=== PATIENT | male | born 1965 | race African-American/Black ===

== ENCOUNTER → 2020-06-07 | Outpatient (CLI) | payer BC ==
--- NOTE | 2020-06-07 08:15 | RAD ---
Right upper quadrant abdominal ultrasound INDICATION: Right upper quadrant abdominal pain TECHNIQUE: Grayscale and color Doppler imaging of the right upper quadrant abdomen was performed FINDINGS: Echogenic liver compatible with fatty infiltration, moderately severe. No liver masses or nodular contour is identified. The gallbladder contains debris compatible with sludge. No wall thickening or pericholecystic fluid is identified and no sonographic Munoz's sign is reported. No intra or extrahepatic biliary dilation. Right kidney measures 9.7 x 5.7 x 5.7 cm and is unremarkable. IVC and abdominal aorta are poorly visualized. IMPRESSION: Fatty liver and gallbladder sludge. No evidence of cholecystitis by ultrasound. Electronically signed by: Willa Mata MD (06/07/2020 8:12 AM) [id number]
== END ==
LOC: US 07:11
PROVIDERS: ATTEND Family Medicine
DX: K76.0 Fatty (change of) liver, not elsewhere classified (principal)
CPT/HCPCS: 76705

== ENCOUNTER → 2020-06-22 | Outpatient (CLI) | payer BC ==
[~2020-06-22] VITALS: Ht 182.9 cm; Wt 95.3 kg
[~2020-06-22] MED LIST: SINCALIDE 1.91 MCG in IV NORMAL SALINE 50ML 30 ML IV ONE
--- NOTE | 2020-06-22 11:05 | RAD ---
HEPATOBILIARY SCAN WITH EJECTION FRACTION 06/22/2020 11:01 AM History: Reason: / Spl. Instructions: / History: Procedure: Serial static images are obtained of the liver and biliary system in the frontal projection following IV administration of mCi of Technetium 99m Choletec. After filling of the gallbladder, 1.9 mcg of sincalide were infused over 30 minutes and dynamic imaging continued over this period. The gallbladder ejection fraction was calculated. Findings: There is prompt hepatic clearance of tracer from the blood pool. There is homogeneous distribution throughout the liver. The gallbladder ejection fraction measures 17% (normal gallbladder EF is 35% or greater). IMPRESSION: 1. The cystic duct and common bile duct are patent. Negative for acute cholecystitis. 2. The gallbladder ejection fraction is abnormal measuring 17 %. Findings may indicate chronic cholecystitis or gallbladder dyskinesia. Electronically signed by: Germain Fuller MD (06/22/2020 11:02 AM) [id number]
== END ==
LOC: NM 08:22
PROVIDERS: ATTEND Family Medicine
DX: R10.11 Right upper quadrant pain (principal)
CPT/HCPCS: 78227; A9537; J2805

== ENCOUNTER → 2020-07-25 | Outpatient (CLI) | payer BC ==
[~2020-07-25] MED LIST changes: +ASPI-630 PO; +HYDR12.575 PO; +LISI-334 PO; +METF500T16 PO; +OXYC1TAB15 PO; -SINCALIDE 1.91 MCG in IV NORMAL SALINE 50ML 30 ML IV ONE
== END ==
LOC: LAB 09:25
PROVIDERS: ATTEND Surgery
DX: Z01.812 Encounter for preprocedural laboratory examination (principal); Z20.828 Contact with and (suspected) exposure to other viral communicable diseases
CPT/HCPCS: U0003

== ENCOUNTER 2020-07-28 06:06 | Day surgery (SDC) | payer BC ==
[~2020-07-28] VITALS: Ht 177.8 cm; Wt 93.5 kg
[2020-07-28] MEDS ORDERED: ONDANSETRON PF 4 MG/2 ML VIAL. ONE (06:37)
[2020-07-28] MEDS ORDERED: LIDOCAINE 2% PF 5 ML VIAL. ONE (06:37)
[2020-07-28] MEDS ORDERED: ROCURONIUM 50 MG/5 ML VIAL. ONE (06:37)
[2020-07-28] MEDS ORDERED: DEXAMETHASONE SOD PHOS 4 MG/ML VIAL ONE (06:37)
[2020-07-28] MEDS ORDERED: PROPOFOL 10 MG/ML (20ML) VIAL. IV ONE ×2 (06:37)
[2020-07-28] MEDS ORDERED: LISI-334 PO (06:39)
[2020-07-28] MEDS ORDERED: HYDR12.575 PO (06:39)
[2020-07-28] MEDS ORDERED: METF500T16 PO (06:40)
[2020-07-28] MEDS ORDERED: ASPI-630 PO (06:41)
[2020-07-28] MEDS ORDERED: fentaNYL PF VIAL 100 MCG/2 ML VIAL IV PRN (07:00)
[2020-07-28] MEDS ORDERED: LIDOCAINE 1% PF 2 ML VIAL. ID PRN (07:00)
[2020-07-28] MEDS ORDERED: HYDROmorphone 2 MG/ML VIAL IV PRN (07:00)
[2020-07-28] MEDS ORDERED: ONDANSETRON PF 4 MG/2 ML VIAL. IV PRN (07:00)
[2020-07-28] MEDS ORDERED: IV RINGERS,LACTATED 1000ML 1,000 ML IV SCH (07:00)
[2020-07-28] MEDS ORDERED: INSULIN LISPRO 100 UNIT/ML 3ML VIAL for OP,RR ONLY. SQ PRN (07:15)
[2020-07-28] MEDS ORDERED: IOHEXOL 300 MG/ML 50 ML VIAL. ONE (07:20)
[2020-07-28] MEDS ORDERED: SURGICEL HEMOSTAT 4X8 EACH. ONE (07:20)
[2020-07-28] MEDS ORDERED: ACETAMINOPHEN 500 MG TABLET PO ONE ×2 (07:25→07:30)
[2020-07-28] MEDS ORDERED: INSULIN LISPRO 100 UNIT/ML 3ML VIAL for OP,RR ONLY. SQ ONE (07:25)
[2020-07-28] MEDS ORDERED: NEOSTIGMINE METHYLSULFATE 5 MG/5 ML SYRINGE. ONE (07:25)
[2020-07-28] MEDS ORDERED: MIDAZOLAM HCL/PF 2 MG/2 ML VIAL. ONE ×2 (07:25→08:57)
[2020-07-28] MEDS ORDERED: fentaNYL PF VIAL 100 MCG/2 ML VIAL ONE ×3 (07:25→08:45)
[2020-07-28] MEDS ORDERED: GLYCOPYRROLATE 1 MG/5 ML VIAL. ONE (07:26)
[2020-07-28] MEDS ORDERED: BUPIVACAINE-EPI 0.25%-1:200000 MPF 30 ML VIAL. INJ ONE (08:00)
--- NOTE | 2020-07-28 08:13 | PDOC4 ---
Operative Note Operative Note Date: July 28, 2020 at 08 11 Preoperative diagnosis biliary dyskinesia Postoperative diagnosis: Same Procedure: Laparoscopic cholecystectomy Surgeon: Jam Specimen: Gallbladder Dictation: Patient is a 55-year-old male with right upper quadrant abdominal pain is postprandial nausea biliary scan showed a ejection fraction of only 17%. Procedure of laparoscopic cholecystectomy was explained to the patient detail risk benefits were also discussed including bleeding infection injury to intra- abdominal contents possible necessitating further open operations alternatives to this procedure also discussed with the patient who seemed to understand and gave both verbal and written consent to have the procedure performed. Patient was taken to the operating room placed in supine position general anesthesia was initiated once patient was sleeping intubated his abdomen was prepped and draped usual sterile fashion using ChloraPrep. Area just below the umbilicus was injected with quarter percent Marcaine with epinephrine incision was made 11 blade scalpel and a varies needle was placed within the abdomen creating pneumoperitoneum once this complete 11 m port was placed and a 5 mm camera was placed within the abdomen which was inspected no other red maladies were noted. A 5 mm port was placed in the epigastrium a 5 mm port was placed in the right midabdomen and a 5 mm port was placed in the right lateral abdomen. The dome of the gallbladder is grasped retracted cephalad the infundibulum of the gallbladder is grasped tract and laterally adherent tissues to the gallbladder were taken down with blunt dissection down to the triangle exposing the cystic duct and cystic artery both were doubly clipped and transected the gallbladder was taken off the liver with hook electrocautery placed in Endo Catch bag and removed from the umbilicus the right upper quadrant was irrigated and suctioned dry hemostasis deemed be appropriate the pneumoperitoneum was reduced all ports were removed the fascial defect at the umbilicus closed with [id number] 0 Vicryl suture and the skin was reapproximated all port sites for subcuticular Monocryl Mastisol Steri-Strips and island dressings were applied. Patient was awakened and extubated operating room taken to recovery in stable condition all sponge instrument needle counts listed as correct estimated blood loss 10 mL JUSTINA RIDER MD Jul 28, 2020 08:13
--- NOTE | 2020-07-28 08:15 | DISCH ---
DISCHARGE INSTRUCTIONS Condition on Discharge Condition on Discharge: Stable Activity After Discharge Activity Instructions for Disc: Avoid exertion Other activity instructions: No lifting more than 20 pounds for 2 weeks Diet after Discharge Diet after Discharge: Low Fat Wound Incision Care Other wound/incision instructi: May shower in 24 hours Contacting the after DC Call your doctor for: If your condition worsens Follow-Up Follow up with: Dr. Rider in 2 weeks JUSTINA RIDER MD Jul 28, 2020 08:15
[2020-07-28] MEDS ORDERED: OXYC1TAB15 PO (08:31)
[2020-07-28] MEDS ORDERED: RACEPINEPHRINE 2.25% 0.5 ML NEBU. ONE (08:43)
[2020-07-28] MEDS ORDERED: MORPHINE SULFATE 2 MG/ML VIAL. ONE (08:45)
[2020-07-28] MEDS ORDERED: ALBUTEROL SULFATE 2.5 MG/3 ML NEBU. NEB ONE (09:00)
[2020-07-28] MEDS ORDERED: MIDAZOLAM HCL/PF 2 MG/2 ML VIAL. IV ONE (09:00)
[2020-07-28] MEDS ORDERED: RACEPINEPHRINE 2.25% 0.5 ML NEBU. NEB ONE (09:00)
[2020-07-28] MEDS: fentaNYL PF VIAL 100 MCG/2 ML VIAL IV PRN ×2 (09:08→09:19)
[2020-07-28] MEDS: MORPHINE SULFATE 2 MG/ML VIAL. IV PRN ×2 (09:09→09:19)
[2020-07-28] MEDS ORDERED: oxyCODONE/APAP 5/325 1 TAB TABLET PO ONE (09:15)
[2020-07-28] MEDS ORDERED: oxyCODONE/APAP 5/325 1 TAB TABLET PO PRN (09:15)
[2020-07-28] MEDS: PROCHLORPERAZINE 10 MG/2 ML VIAL. IV PRN ×2 (09:19→09:34)
[2020-07-28] MEDS ORDERED: HYDROmorphone 2 MG/ML VIAL ONE (09:32)
[2020-07-28 09:52] VITALS: BP 146/85
--- NOTE | 2020-08-01 00:06 | PATHOLOGY ---
[facility] Accession Number: [id number] . 01 Material submitted: . gallbladder - GALLBLADDER AND CONTENTS . 01 Clinical history: . CHOLELITHIASIS . 02 Diagnosis: "Gallbladder and contents", cholecystectomy: - Chronic cholecystitis. (CLW:letha; 07/31/2020) MBR 07/31/2020 1649 Local . 02 Electronically signed: . Mariana Holliday MD, Pathologist NPI- [id number] . 01 Gross description: . Received in formalin labeled "Darrin Talamantes, gallbladder and contents" is an intact cholecystectomy specimen measuring 6.7 x 2.8 x 2.7 cm. The serosa is arboleda-green and the specimen is opened to reveal dark green velvety mucosa without polyps or masses. The average wall thickness is 0.1 cm. Calculi are not identified within the gallbladder or container. Quality Inspector sections of the fundus and body and the cystic duct margin are submitted in A1. ([facility]; 07/30/2020) [facility] 07/30/2020 1059 Local . 02 Pathologist provided ICD-10: K81.1 . 02 CPT . 829987 Specimen Comment: A courtesy copy of this report has been sent to [phone] Specimen Comment: Report sent to / DR HUGHES Performed at: 01 [facility] [address] [facility] [address] [facility] [address], [place] [id number] MD Rocco Lafleur MD Phone: [phone] Performed at: 02 [facility] [address] [place], [place] [id number] MD Anurag Mike MD Phone: [phone]
== END 2020-07-28 10:18 | disposition home or self-care (01) ==
LOC: SURG 06:06
PROVIDERS: ATTEND Surgery
DX: K82.8 Other specified diseases of gallbladder (principal); K81.1 Chronic cholecystitis; I10 Essential (primary) hypertension; E11.40 Type 2 diabetes mellitus with diabetic neuropathy, unspecified; J44.9 Chronic obstructive pulmonary disease, unspecified; M19.90 Unspecified osteoarthritis, unspecified site; K21.9 Gastro-esophageal reflux disease without esophagitis; E78.00 Pure hypercholesterolemia, unspecified; Z98.890 Other specified postprocedural states; Z87.891 Personal history of nicotine dependence; Z90.49 Acquired absence of other specified parts of digestive tract; Z79.899 Other long term (current) drug therapy; Z79.82 Long term (current) use of aspirin; Z79.84 Long term (current) use of oral hypoglycemic drugs; Z96.641 Presence of right artificial hip joint
CPT/HCPCS: 47562; 82962; 94640; J0690; J1100; J1170; J1815; J2250; J2270; J2405; J2704; J2710; J3010; J3490; J7120; Q9967

== ENCOUNTER 2020-07-28 13:33 | Emergency (ER) | payer BC ==
[~2020-07-28] VITALS: Ht 182.9 cm; Wt 95.0 kg
[2020-07-28] MEDS ORDERED: IV NORMAL SALINE 1000ML BAG 1,000 ML IV ONE (14:00)
[2020-07-28 14:54] LABS: BASO # 0.1 x10^3/uL (0.0-0.2); BASO % 1 % (0-3); CALCIUM 8.8 mg/dL (8.5-10.1); CREATININE 1.1 mg/dL (0.7-1.3); EOS % 0 % (0-3); GFR 84.1; HEMOGLOBIN 12.5 g/dL (13.0-17.5); LYMPH # 0.9 x10^3/uL (1.0-4.8); LYMPH % 6 % (24-48); MEAN CORPUSCULAR HEMOGLOBIN 35 pg (25-35); MEAN CORPUSCULAR HGB CONC 34 g/dL (31-37); MEAN CORPUSCULAR VOLUME 103 fL (79-100); MONO # 0.6 x10^3/uL (0.0-1.1); MONO % 4 % (0-9); NEUT # 15.1 x10^3/uL (1.8-7.7); NEUT % 90 % (31-73); PLATELET COUNT 230 x10^3/uL (140-400); POTASSIUM 3.8 mmol/L (3.5-5.1); RED BLOOD COUNT 3.61 x10^6/uL (4.30-5.70); RED CELL DISTRIBUTION WIDTH 12.5 % (11.5-14.5); WHITE BLOOD COUNT 16.7 x10^3/uL (4.0-11.0)
[2020-07-28 15:00] LABS: ALBUMIN 3.1 g/dL (3.4-5.0); ALBUMIN/GLOBULIN RATIO 0.9 (1.0-1.7); TOTAL BILIRUBIN 0.2 mg/dL (0.2-1.0); TOTAL PROTEIN 6.4 g/dL (6.4-8.2)
--- NOTE | 2020-07-28 15:23 | RAD ---
EXAM: Chest, single view. HISTORY: Shortness of breath. COMPARISON: None. FINDINGS: A frontal view of the chest is obtained. There is no infiltrate, pleural effusion or pneumo thorax. There is a prominent cardiac silhouette. IMPRESSION: No acute pulmonary finding. Electronically signed by: Jamia Vázquez MD (07/28/2020 3:20 PM) [facility]
[2020-07-28 16:18] LABS: % LYMPHS 8 % (24-48); % MONOS 3 % (0-10); % SEGS 89 % (35-66); PLT ESTIMATE ADEQUATE (ADEQUATE)
[2020-07-28 16:19] LABS: SCHISTOCYTES OCC; TOXIC GRANULATION SLIGHT; TOXIC VACUOLATION SLIGHT
[2020-07-28] MEDS ORDERED: IOHEXOL 350 MG/ML 100 ML VIAL. IV ONE (16:45)
[2020-07-28] MEDS ORDERED: CONTRAST GIVEN. MC PRN (17:00)
[2020-07-28] MEDS ORDERED: MORPHINE SULFATE 4 MG/ML VIAL. IV ONE (17:15)
--- NOTE | 2020-07-28 18:09 | PHYS DOC ---
Past Medical History Past Medical History: Diabetes-Type II, High Cholesterol, Hypertension, Other Additional Past Medical Histor: NEUROPATHY (SHIRLEY SANTOYO DO) Past Surgical History: Cholecystectomy, Hip Replacement, Other (SHIRLEY SANTOYO DO) Smoking Status: Former Smoker Alcohol Use: None (SHIRLEY SANTOYO DO) General Adult EDM: Chief Complaint: NEAR SYNCOPE HPI: HPI: Patient is a 55 year old male who was brought here by EMS from home due to trouble breathing. Patient feels like he was going to pass out due to trouble breathing. Patient just got home from the hospital after he had a laparoscopic cholecystectomy done this morning. Patient denies any chest pain, denies any cough or fever. Patient is complain of pain in his right upper quadrant area where the operation was done (SHIRLEY SANTOYO DO) Review of Systems: Review of Systems: Constitutional: Denies fever or chills. [] Eyes: Denies change in visual acuity. [] HENT: Denies nasal congestion or sore throat. [] Respiratory: Denies cough , positive for shortness of breath. [] Cardiovascular: Denies chest pain or edema. [] GI: Denies abdominal pain, nausea, vomiting, bloody stools or diarrhea. [] : Denies dysuria. [] Musculoskeletal: Denies back pain or joint pain. [] Integument: Denies rash. [] Neurologic: Denies headache, focal weakness or sensory changes. [] Endocrine: Denies polyuria or polydipsia. [] Lymphatic: Denies swollen glands. [] Psychiatric: Denies depression or anxiety. [] (SHIRLEY SANTOYO DO) Heart Score: Risk Factors: Risk Factors: DM, Current or recent (<one month) smoker, HTN, HLP, family history of CAD, obesity. Risk Scores: Score 0 - 3: 2.5% MACE over next 6 weeks - Discharge Home Score 4 - 6: 20.3% MACE over next 6 weeks - Admit for Clinical Observation Score 7 - 10: 72.7% MACE over next 6 weeks - Early Invasive Strategies (SHIRLEY SANTOYO DO) Current Medications: Current Medications Medications (Trade) Dose Ordered Sig/Shilo Start Time Stop Time Status Last Admin Dose Admin Info (CONTRAST GIVEN -- Rx MONITORING) 1 each PRN DAILY PRN 07/28/20 17:00 07/30/20 16:59 Iohexol (Omnipaque 350 Mg/ml) 100 ml 1X ONCE 07/28/20 16:45 07/28/20 16:46 DC 07/28/20 17:15 100 ML Morphine Sulfate (Morphine Sulfate) 4 mg 1X ONCE 07/28/20 17:15 07/28/20 17:16 DC 07/28/20 17:16 4 MG Sodium Chloride 1,000 ml @ 1,000 mls/hr 1X ONCE 07/28/20 14:00 07/28/20 14:59 DC 07/28/20 14:00 1,000 MLS/HR (SHIRLEY SANTOYO DO) Allergies: Allergies: Allergies Coded Allergies Type Severity Reaction Last Updated Verified No Known Drug Allergies 07/28/20 No (SHIRLEY SANTOYO DO) Physical Exam: PE: Constitutional: Well developed, well nourished, no acute distress, non-toxic appearance. [] HENT: Normocephalic, atraumatic, bilateral external ears normal, oropharynx moist, no oral exudates, nose normal. [] Eyes: PERRLA, EOMI, conjunctiva normal, no discharge. [] Neck: Normal range of motion, no tenderness, supple, no stridor. [] Cardiovascular:Heart rate regular rhythm, no murmur [] Lungs & Thorax: Bilateral breath sounds clear to auscultation [] Abdomen: Bowel sounds normal, soft, ruq tenderness to palpation, mild distension, no masses, no pulsatile masses. [] Skin: Warm, dry, no erythema, no rash. [] Back: No tenderness, no CVA tenderness. [] Extremities: No tenderness, no cyanosis, no clubbing, ROM intact, no edema. [] Neurologic: Alert and oriented X 3, normal motor function, normal sensory fu nction, no focal deficits noted. [] Psychologic: Affect normal, judgement normal, mood normal. [] (SHIRLEY SANTOYO DO) Current Patient Data: Labs: Laboratory Tests Test 07/28/20 14:37 White Blood Count 16.7 x10^3/uL (4.0-11.0) H Red Blood Count 3.61 x10^6/uL (4.30-5.70) L Hemoglobin 12.5 g/dL (13.0-17.5) L Hematocrit 37.0 % (39.0-53.0) L Mean Corpuscular Volume 103 fL (79-100) H Mean Corpuscular Hemoglobin 35 pg (25-35) Mean Corpuscular Hemoglobin Concent 34 g/dL (31-37) Red Cell Distribution Width 12.5 % (11.5-14.5) Platelet Count 230 x10^3/uL (140-400) Neutrophils (%) (Auto) 90 % (31-73) H Lymphocytes (%) (Auto) 6 % (24-48) L Monocytes (%) (Auto) 4 % (0-9) Eosinophils (%) (Auto) 0 % (0-3) Basophils (%) (Auto) 1 % (0-3) Neutrophils # (Auto) 15.1 x10^3/uL (1.8-7.7) H Lymphocytes # (Auto) 0.9 x10^3/uL (1.0-4.8) L Monocytes # (Auto) 0.6 x10^3/uL (0.0-1.1) Eosinophils # (Auto) 0.0 x10^3/uL (0.0-0.7) Basophils # (Auto) 0.1 x10^3/uL (0.0-0.2) Segmented Neutrophils % 89 % (35-66) H Lymphocytes % 8 % (24-48) L Monocytes % 3 % (0-10) Toxic Granulation Slight Toxic Vacuolation Slight Platelet Estimate Adequate (ADEQUATE) Schistocytes Occ Sodium Level 139 mmol/L (136-145) Potassium Level 3.8 mmol/L (3.5-5.1) Chloride Level 103 mmol/L (98-107) Carbon Dioxide Level 23 mmol/L (21-32) Anion Gap 13 (6-14) Blood Urea Nitrogen 17 mg/dL (8-26) Creatinine 1.1 mg/dL (0.7-1.3) Estimated GFR (Cockcroft-Gault) 84.1 BUN/Creatinine Ratio 15 (6-20) Glucose Level 220 mg/dL (70-99) H Calcium Level 8.8 mg/dL (8.5-10.1) Total Bilirubin 0.2 mg/dL (0.2-1.0) Aspartate Amino Transferase (AST) 49 U/L (15-37) H Alanine Aminotransferase (ALT) 69 U/L (16-63) H Alkaline Phosphatase 63 U/L (46-116) Total Protein 6.4 g/dL (6.4-8.2) Albumin 3.1 g/dL (3.4-5.0) L Albumin/Globulin Ratio 0.9 (1.0-1.7) L Laboratory Tests 07/28/20 14:37 Laboratory Tests 07/28/20 14:37 Vital Signs: Vital Signs Date Time Temp Pulse Resp B/P (MAP) Pulse Ox O2 Delivery O2 Flow Rate FiO2 07/28/20 13:35 97.5 91 22 126/71 (89) 100 Room Air 97.5 (SHIRLEY SANTOYO DO) EKG: EKG: [] (SHIRLEY SANTOYO DO) Radiology/Procedures: Radiology/Procedures: [][facility] [address] [place] [address] IMAGING REPORT Signed PATIENT: MATTHIAS NIX QACCOUNT: [id number] : 1965 LOCATION: ER AGE: 55 SEX: M EXAM STATUS: REG ER ORD. PHYSICIAN: SHIRLEY SANTOYO DO REASON: shortness of air, chest pain, cholecystectomy done today PROCEDURE: CHEST AP ONLY EXAM: Chest, single view. HISTORY: Shortness of breath. COMPARISON: None. FINDINGS: A frontal view of the chest is obtained. There is no infiltrate, pleural effusion or pneumothorax. There is a prominent cardiac silhouette. IMPRESSION: No acute pulmonary finding. Electronically signed by: Jamia Galeana MD (07/28/2020 3:20 PM) [facility] DICTATED and SIGNED BY: JAMIA GALEANA MD DATE: 07/28/20 [id number] (SHIRLEY SANTOYO DO) Course & Med Decision Making: Course & Med Decision Making Pertinent Labs and Imaging studies reviewed. (See chart for details) CT scan of the chest show no evidence of PE, other finding is expected after laparoscopic cholecystectomy this morning. Patient will be discharged home. (SHIRLEY SANTOYO DO) Course & Med Decision Making I was not the ED provider for this patient. ([facility]) Dragon Disclaimer: Dragon Disclaimer: This electronic medical record was generated, in whole or in part, using a voice recognition dictation system. (SHIRLEY SANTOYO DO) Departure Departure Impression: Primary Impression: Acute dyspnea Disposition: 01 DC HOME SELF CARE/HOMELESS Condition: IMPROVED Referrals: Anali HUGHES MD (PCP) JUSTINA RIDER MD Follow-up with your surgeon as directed. Patient Instructions: Pain Relief Preoperatively and Postoperatively, Shortness of Breath Additional Instructions: Thank you for visiting our Emergency Department. We appreciate you trusting us with your care. If any additional problems come up don't hesitate to return to visit us. Please follow up with your primary care provider so they can plan additional care if needed and know about the problem that you had. If symptoms worsen come back to the Emergency Department. Any concerning symptoms that start such as chest pain, shortness of air, weakness or numbness on one side of the body, running high fevers or any other concerning symptoms return to the ER. SHIRLEY SANTOYO DO Jul 28, 2020 18:09 JACQUELIN POND DO Jul 30, 2020 03:42
--- NOTE | 2020-07-28 18:23 | RAD ---
Study: CT CHEST WITH CONTRAST - PULMONARY ANGIOGRAM History: Chest pain. Status post cholecystectomy. Comparison: None. Technique: Helical CT of the chest performed after the administration of 100 cc Omnipaque 350 intrav enous contrast and timed for angiographic evaluation of the pulmonary arteries per PE protocol. Coron al and sagittal 3D MIP reformations were obtained. One or more of the following individualized dose reduction techniques were utilized for this examinat ion: 1. Automated exposure control 2. Adjustment of the mA and/or kV according to patient size 3. Use of iterative reconstruction technique. Findings: Pulmonary Arteries: No pulmonary embolism is identified. Normal main pulmonary artery caliber. Heart/Systemic Vasculature: Scattered calcified and noncalcified atheromatous plaque. No aortic aneur ysmal dilatation or dissection. The visualized great vessels are patent. No CT manifestations of righ t heart strain. Mediastinum: Within normal limits. Lungs: Paraseptal emphysema. No suspicious pulmonary nodule based on size. No confluent airspace infi ltrate. No pleural effusion or pneumothorax. Neck/Axilla/Body Wall: Nodule at the far inferior aspect of the left thyroid lobe measuring up to 1.3 cm. No associated mineralization is identified. The nodule does not meet size criteria for dedicated thyroid ultrasound (given size less than 1.5 cm) unless otherwise clinically indicated. Axillary lym ph nodes are within normal limits. Mild gynecomastia. Upper Abdomen: Small volume pneumoperitoneum in the setting of recent cholecystectomy. Hemorrhage see n adjacent to the left hepatic lobe as well as abutting the distal stomach and proximal duodenum and extending along the greater curvature up to the left subdiaphragmatic region. Blood products along th e periphery of the spleen and extending downward below the inferior field of view. No contrast blush from the hepatic arteries is seen in the region of hemorrhage. Diffuse hepatic parenchymal hypoattenu ation. Small left adrenal gland nodule, image 136 series 3, measuring approximately 1.1 cm. The rest of the left adrenal gland is somewhat hyperplastic without an additional discrete nodule. The nodule is indeterminant based off internal density averaging around 40 Hounsfield units. Prominent precaval lymph node on image 139 series 3 measuring 1.7 cm short axis. Lymph node anterior to the main portal vein on image 136 series 3 measures 1.2 cm short axis. Bones: No acute or aggressive osseous process. Miscellaneous: Partially imaged sequela of surgery involving the body wall soft tissues with scattere d foci of gas. IMPRESSION: 1. No pulmonary embolism or other acute abnormality throughout the chest. 2. Blood products seen predominantly along the left hepatic lobe, stomach and spleen. Hemorrhage aragon s exert some mass effect on the distal stomach (image 146 series 3). No contrast blush is identified from adjacent hepatic artery branches to suggest active hemorrhage. This could be within normal limit s given recent surgery but it would be useful to correspond with the performing surgical team to dete rmine if the volume of hemorrhage is on par with what was encountered during surgery. If the volume o f blood is more than expected, recommend CBC trending and a follow-up could be performed to assess fo r any change. 3. Small volume pneumoperitoneum favored within normal limits. 4. Small left adrenal gland nodule measuring 1.1 cm. Correlate with any potential outside CT imaging to determine stability. If none are available, eventual CT adrenal gland mass protocol could be perf ormed. 5. Two prominent right upper quadrant lymph nodes are favored reactive given no provided history of malignancy. Attention on follow-up if an adrenal gland mass protocol is performed. Electronically signed by: ABHIJIT WEST MD (07/28/2020 6:20 PM) [facility]
[2020-07-28 18:30] VITALS: BP 141/72
== END 2020-07-28 18:40 | disposition home or self-care (01) ==
LOC: ER 13:33
DX: R06.09 Other forms of dyspnea (principal); R10.11 Right upper quadrant pain; E78.00 Pure hypercholesterolemia, unspecified; I10 Essential (primary) hypertension; E11.40 Type 2 diabetes mellitus with diabetic neuropathy, unspecified; Z90.49 Acquired absence of other specified parts of digestive tract; Z98.890 Other specified postprocedural states; Z87.891 Personal history of nicotine dependence
CPT/HCPCS: 36415; 71045; 71275; 80053; 82962; 85007; 85025; 96361; 96374; 99285; J2270; J7030; Q9967